=== PATIENT | male | born 1950 | race Caucasian/White ===

== ENCOUNTER → 2023-09-11 06:27 | Day surgery (SDC) | payer MEDICARE, BC, SELFPAY ==
[2023-09-11 12:43] LABS: Glucose - Point of Care 146 mg/dl (70-99)
== END ==
LOC: GI 06:27
PROVIDERS: ATTENDING PHYSICIAN Specialist
DX: R13.10 Dysphagia, unspecified (principal); K22.9 Disease of esophagus, unspecified; I85.10 Secondary esophageal varices without bleeding; B49 Unspecified mycosis
CPT/HCPCS: 43235; 82962; 87220

== ENCOUNTER → 2023-09-11 14:31 | Outpatient (REF) | payer MEDICARE, BC, SELFPAY | LOC: RAD 14:31 | PROVIDERS: ATTENDING PHYSICIAN Physician Assistant; FAMILY PHYSICIAN Family Medicine | DX: M25.562 Pain in left knee (principal) | CPT/HCPCS: 73564 ==

== ENCOUNTER → 2023-09-27 13:26 | Outpatient (REF) | payer MEDICARE, BC, SELFPAY | LOC: HWRAD 13:26 | PROVIDERS: ATTENDING PHYSICIAN Specialist; FAMILY PHYSICIAN Family Medicine | DX: K74.69 Other cirrhosis of liver (principal) | CPT/HCPCS: 76700 ==

== ENCOUNTER → 2023-11-20 14:27 | Outpatient (REF) | payer MEDICARE, BC, SELFPAY | LOC: MRI 3T 14:27 | PROVIDERS: ATTENDING PHYSICIAN Family Medicine | DX: R41.3 Other amnesia (principal) | CPT/HCPCS: 70551 ==

== ENCOUNTER → 2025-02-25 10:53 | Outpatient (REF) | payer MEDICARE, BC, SELFPAY | LOC: RAD 10:53 | PROVIDERS: ATTENDING PHYSICIAN Family Medicine | DX: M54.50 Low back pain, unspecified (principal); W10.8XXA Fall (on) (from) other stairs and steps, initial encounter | CPT/HCPCS: 72110; 72170 ==

== ENCOUNTER 2025-03-30 18:27 | Emergency (ER) | payer MEDICARE, BC, SELFPAY ==
[2025-03-30 18:30] VITALS: BP 160/64
[2025-03-30 18:45] VITALS: BP 150/64
[2025-03-30 19:00] VITALS: BP 127/70
--- NOTE | 2025-03-30 19:39 | ED.GENMED ---
History of Present Illness
<Michelle Sanchez PA-C - Last Filed: 03/30/25 22:57>
General
Chief Complaint: Change in Mental Status
Time Seen by Provider: 03/30/25 18:48
History of Present Illness
History of Present Illness:
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 Family was concerned as he has been exhibiting increased
confusion over the last several weeks and has been falling a lot more recently. He has been seen by his family doctor who has been working him up for worsening dementia and has ordered a brain MRI that has not yet been completed. He has no other
complaints. Family does not note any other neurologic deficits.Denies double vision, blurry vision, headaches, nausea, vomiting. Reports multiple falls today.
Past History
<Michelle Sanchez PA-C - Last Filed: 03/30/25 22:57>
Past History
ED Past Medical History: Other (Hypertension, hep C., diabetes, cirrhosis); Negative Arrthythmia, Asthma, Cancer or CVA
Social History
Tobacco: Former smoker
Alcohol: None
Drug: None
Personal:
Living: with family
Employment: Other
Family History
Family History: Other (Dad with [place], mother with CHF and lung cancer)
Phy Exam
<Michelle Sanchez PA-C - Last Filed: 03/30/25 22:57>
General Physical Exam
General Presentation: well appearing and no apparent distress
General Skin: warm and dry
General Habitus: normal
General Mental: alert
General Hydration: appears well hydrated
ENT Exam
ENT Exam: EOMI, pharynx normal, neck supple and normocephalic
Eye Exam
Eye Exam: PERRL, cornea clear and conjunctiva normal
Cardiovascular Exam
Cardiovascular Exam: regular rate/rhythm, no edema, no murmur and normal peripheral pulses
Pulmonary Exam
Pulmonary Exam: lungs clear, no respiratory distress, no rales, no crackles, no rhonchi, no stridor, no wheezing and no cough
Gastrointestinal Exam
Gastrointestinal Exam: normal bowel sounds, non tender, soft, no organomegaly, no pulsatile mass and non distended
Neurological Exam
Neurological Exam: alert, oriented x3, no motor deficits and speech normal
Mental
Mental Status: usual mental status
Describe Speech: normal speech
Musculoskeletal Exam
Musculoskeletal Exam: full ROM and no edema
Skin Exam
Skin Exam: normal color, warm/dry, no rash and no petechia
Psychiatric Exam
Psychiatric Exam: normal mood/affect
Scores
<Michelle Sanchez PA-C - Last Filed: 03/30/25 22:57>
NIH Stroke Score
Level of Consciousness: 0 - Alert
LOC Questions: 0-Answers both correctly
LOC Commands: 0-Performs both correctly
Best Horizontal Gaze: 0-Normal
Visual Hernandez: 0=Normal, no visual loss
Facial Palsy: 0=Normal, symmetrical
Motor - Right Arm: 0=No drift 10 seconds
Motor - Left Arm: 0=No drift 10 seconds
Motor - Right Le-No drift 5 seconds
Motor - Left Le-No drift 5 seconds
Limb Ataxia: 0-Absent
Sensation: 0-Normal
Best Language: 0-No aphasia
Dysarthria: 0-Normal
Extinction and Inattention: 0-No abnormality
NIH Total Score:: 0
<Lito Barnes DO - Last Filed: 03/30/25 21:07>
NIH Stroke Score
NIH Total Score:: 0
Course
<Michelle Sanchez PA-C - Last Filed: 03/30/25 22:57>
Orders/Labs/Results
Orders:
Orders
03/30/25 19:24
CT Head W/o Iv Contrast Urgent
Comment:
Reason For Exam: confusion
03/30/25 19:30
Basic Metabolic Panel Urgent
Complete Blood Count/With Diff Urgent
03/30/25 20:38
MR Brain W/o & With Contrast Urgent
Comment:
Reason For Exam: visual hallucinations
Recent pill cam endoscopy?: No
Abnormal Lab Results
03/30/25
19:30
RBC 4.25 L 10^6/uL
(4.70-6.10)
Hgb 12.1 L g/dL
(13.0-18.0)
Hct 36.1 L %
(39.0-52.0)
Plt Count 103 L 10^3/uL
(130-400)
MPV 11.1 H fL
(7.4-10.4)
Monocytes % 10.1 H %
(1.7-9.3)
Eosinophils % 9.0 H %
(0-6)
BUN 24 H mg/dl
(9-20)
Glucose 212 H mg/dl
(70-99)
03/30/25 19:30
03/30/25 19:30
Vital Signs
Initial and Last Documented VS:
Initial Vital Signs
Temp Pulse Resp BP Pulse Ox
36.7 C 94 20 160/64 94
03/30/25 18:30 03/30/25 18:30 03/30/25 18:30 03/30/25 18:30 03/30/25 18:30
Last Documented Vital Signs
Temp Pulse Resp BP Pulse Ox
36.7 C 73 16 159/62 94
03/30/25 18:30 03/30/25 22:15 12/09/25 22:15 03/30/25 22:07 03/30/25 19:43
<Lito Barnes, DO - Last Filed: 03/30/25 21:07>
Orders/Labs/Results
Orders:
Orders
03/30/25 19:24
CT Head W/o Iv Contrast Urgent
Comment:
Reason For Exam: confusion
03/30/25 19:30
Basic Metabolic Panel Urgent
Complete Blood Count/With Diff Urgent
03/30/25 20:38
MR Brain W/o & With Contrast Urgent
Comment:
Reason For Exam: visual hallucinations
Recent pill cam endoscopy?: No
Abnormal Lab Results
03/30/25
19:30
RBC 4.25 L 10^6/uL
(4.70-6.10)
Hgb 12.1 L g/dL
(13.0-18.0)
Hct 36.1 L %
(39.0-52.0)
Plt Count 103 L 10^3/uL
(130-400)
MPV 11.1 H fL
(7.4-10.4)
Monocytes % 10.1 H %
(1.7-9.3)
Eosinophils % 9.0 H %
(0-6)
BUN 24 H mg/dl
(9-20)
Glucose 212 H mg/dl
(70-99)
03/30/25 19:30
03/30/25 19:30
Vital Signs
Initial and Last Documented VS:
Initial Vital Signs
Temp Pulse Resp BP Pulse Ox
36.7 C 94 20 160/64 94
03/30/25 18:30 03/30/25 18:30 03/30/25 18:30 03/30/25 18:30 03/30/25 18:30
Last Documented Vital Signs
Temp Pulse Resp BP Pulse Ox
36.7 C 73 16 159/62 94
03/30/25 18:30 03/30/25 22:15 03/30/25 22:15 03/30/25 22:07 03/30/25 19:43
<Michelle Sanchez PA-C - Last Filed: 03/30/25 22:57>
MDM/Problems Addressed
Differential Diagnosis Includes:
CT head obtained and negative for any acute intracranial pathology. Lab work including CBC and BMP unremarkable. On chart review it appears that patient's primary care provider is working him up for dementia and had previously ordered an outpatient
MRI.Hallucinations likely related to progressive dementia. He remains without any other symptoms or changes in his neurologic status. Discussed case with psychiatry and neurology who both recommend outpatient follow-up. Neurology is also
recommending a MRI brain with and without contrast be completed sooner rather than later. Given that patient does not have any indications for admission discussed with radiology who is able to accommodate MRI tonight. MRI brain with and without
completed. Will follow-up for results as they will not be back prior to him leaving the ER and contact patient when they are back. He will follow-up outpatient with neurology, psychiatry and his primary care provider. Return precautions
discussed. Sons were present and in agreement with plan
<Michelle Sanchez PA-C - Last Filed: 03/30/25 22:57>
*Pulse Oximetry
SaO2: 94
Oxygen Mode of Delivery: Room air
Patient hypoxic: no
*Critical Care Note
Total Time (30-74mins, 75-104mins- exclusive of procedures): Not Applicable
ED Attending Note
<Michelle Sanchez PA-C - Last Filed: 03/30/25 22:57>
-
Portions of this chart may have been created with voice recognition software.� Occasional wrong word or��sound alike� substitutions may have occurred due to the inherent limitations of voice recognition software.
<Lito Blas Molly, DO - Last Filed: 03/30/25 21:07>
ED Attending Note
Patient seen and examined by attending physician: Yes
I performed the substantive portion of visit, reviewed & personally made and approve the management plan that is documented in note by myself or REBECCA.: Yes
ED Attending Note:
I evaluated the patient at bedside. Family describes symptoms concerned with dementia over the last several months. More recently, the patient had hallucinations. We reached out to both psychiatry and neurology. Neurology would like MRI brain
with and without contrast. We discussed with radiologist and will attempt to get the study done tonight before discharge.
Discharge Plan
Departure
Patient Disposition: Home (Routine Discharge)
Date of Disposition: 03/30/25
Time of Disposition: 21:50
Patient with high blood pressure during this ER visit?: No
Discharge Problem:
Hallucination, visual, Dementia
Instructions: Dementia - ED (DC)
Prescriptions:
No Action
eszopiclone [Lunesta] 3 MG tablet
3 mg PO HS
metformin 500 MG tablet
500 mg PO BID
aspirin 81 MG tablet,delayed release (DR/EC)
81 mg PO DAILY
amlodipine 5 MG tablet
5 mg PO DAILY Qty: 30 0RF
multivitamin [One A Day Vitamin] Tablet
1 tab PO DAILY
latanoprost 0.005 % Drops
1 drp OPHTHALMIC (EYE) DAILY
paroxetine HCl 10 mg Tablet
10 mg PO DAILY
atorvastatin 10 mg Tablet
10 mg PO DAILY
dronabinol 2.5 mg Capsule
2.5 mg PO TID
lisinopril 10 mg Tablet
10 mg PO DAILY
propranolol 20 mg Tablet
20 mg PO BID
dorzolamide 2 % Drops
1 drp OPHTHALMIC (EYE) BID
mecobalamin (vitamin B12) [B12 Active] 1,000 mcg Tablet,Chewable
1,000 mcg PO DAILY
Zenpep 20,000-63,000- 84,000 unit Capsule,Delayed Release(Dr/Ec)
3 cap PO AC
Referrals:
Joel Benito PSY [Specified Professional Personl, Psychiatry]
He Thibodeaux MD [Active, Neurology]
UNKNOWN - PT DOES,NOT KNOW [Unknown Provider]
Activity Restrictions/Additional Instructions:
CT head was negative for any intracranial hemorrhage or mass lesions. Symptoms are likely related to progressive dementia. It is important that you follow-up outpatient with psychiatry and neurology. An MRI brain was completed and we will
follow-up call you with the results.Return to the ER for any sudden increase in confusion, severe headaches, or other concerning symptoms.
Interventions
Interventions:
*Risk Screen - Suicide Last Done: 03/30/25 20:45
*General Assessment Last Done: 03/30/25 18:30
*Neglect/Abuse Screening Last Done: 03/30/25 20:43
*ED COVID-19 Vaccine History Last Done: 03/30/25 20:43
*ED Influenza Vaccine History Last Done: 03/30/25 20:43
[facility] Fall Risk Assessment Tool Last Done: 03/30/25 18:27
*Nursing Disposition Last Done: 03/30/25 22:27
ED- Neurological Assessment Last Done: 03/30/25 19:50
ED-Psychological Assessment Last Done: 03/30/25 19:50
Discharge Date and Time
Discharge Date/Time: 03/30/25 22:28
Print Language: GUAMANIAN
[2025-03-30 19:44] LABS: Hematocrit 36.1 % (39.0-52.0); Hemoglobin 12.1 g/dL (13.0-18.0); Mean Corp Hgb Conc. 33.5 g/dL (33.0-37.0); Mean Corpuscular Volume 84.9 fL (80.0-94.0); Nucleated Red Blood Cells % 0 % (-); Platelet Count 103 10^3/uL (130-400); Red Cell Dist. Width 12.0 % (11.5-14.5)
[2025-03-30 20:05] LABS: Blood Urea Nitrogen 24 mg/dl (9-20); Calcium 10.1 mg/dl (8.4-10.2); Carbon Dioxide 29 mmol/L (22-30); Chloride 102 mmol/L (98-107); Glucose 212 mg/dl (70-99); Potassium 4.4 mmol/L (3.5-5.1); Sodium 135 mmol/L (135-145); eGFR > 60.00
[2025-03-30 22:07] VITALS: BP 159/62
== END 2025-03-30 22:28 | disposition home or self-care (01) ==
LOC: EMR 18:27
PROVIDERS: Surgery Trauma Surgery; EMERGENCY PHYSICIAN Emergency Medicine; FAMILY PHYSICIAN Family Medicine
DX: F03.92 Unspecified dementia, unspecified severity, with psychotic disturbance (principal); R44.1 Visual hallucinations; I10 Essential (primary) hypertension; E11.9 Type 2 diabetes mellitus without complications; Z86.73 Personal history of transient ischemic attack (TIA), and cerebral infarction without residual deficits; Z86.19 Personal history of other infectious and parasitic diseases; Z87.891 Personal history of nicotine dependence
CPT/HCPCS: 99284; 70450; 70553; 80048; 85025; A9575